=== PATIENT | male | born 1945 ===

== ENCOUNTER 2021-03-31 16:26 | Emergency (ER) | payer OTHER ==
[~2021-03-31] VITALS: Ht 167.6 cm; Wt 74.4 kg
[~2021-03-31 16:26] MED LIST: AMLODIPINE BESY10 MG PO; HYDROCHLOROTHIA50 MG PO; KETO10TA2 PO; LISINOPRIL20 MG PO; METFORMIN HCL500 MG PO
[2021-03-31] MEDS ORDERED: HYDROCHLOROTHIA25 MG PO (16:41)
[2021-03-31] MEDS ORDERED: NORVASC5 MG PO (16:41)
== END 2021-03-31 18:34 | disposition home or self-care (01) ==
LOC: ER 16:26
DX: M79.675 Pain in left toe(s) (principal)

== ENCOUNTER 2021-12-01 05:51 | Emergency (ER) | payer OTHER ==
[~2021-12-01] VITALS: Ht 167.6 cm; Wt 74.8 kg
[~2021-12-01 05:51] MED LIST changes: +HYDROCHLOROTHIA25 MG PO; +NORVASC5 MG PO
[2021-12-01] MEDS ORDERED: HYDROCHLOROTHIA25 MG PO (06:17)
[2021-12-01] MEDS ORDERED: COZAAR100 MG PO (06:17)
[2021-12-01] MEDS ORDERED: AMLODIPINE BESY10 MG PO (06:17)
[2021-12-01] MEDS ORDERED: LIPITOR40 M1 PO (06:18)
== END 2021-12-01 12:59 | disposition home or self-care (01) ==
LOC: ER 05:51
DX: I10 Essential (primary) hypertension (principal)

== ENCOUNTER 2022-03-21 15:21 | Emergency (ER) | payer OTHER ==
[~2022-03-21] VITALS: Ht 167.6 cm; Wt 70.3 kg
[~2022-03-21 15:21] MED LIST changes: +COZAAR100 MG PO; +LIPITOR40 M1 PO
== END 2022-03-21 18:39 | disposition home or self-care (01) ==
LOC: ER 15:21
DX: B34.9 Viral infection, unspecified (principal); R19.7 Diarrhea, unspecified; R53.1 Weakness; E11.9 Type 2 diabetes mellitus without complications